=== PATIENT | female | born 2005 | race Caucasian/White ===

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

== ENCOUNTER 2023-03-25 21:55 | Emergency (ER) | payer BC ==
[~2023-03-25] VITALS: Ht 167 cm; Wt 58.9 kg
[~2023-03-25 21:55] MED LIST changes: +METR-145 PO
[2023-03-25] MEDS ORDERED: LACTATED RINGERS 1,000 ML 1,000 ML IV SCH ×2 (22:15→23:00)
[2023-03-25 22:23] LABS: BASOPHILS % (AUTO) 0 % (0-10); EOSINOPHILS % (AUTO) 0 % (0-10); HEMATOCRIT 41 % (35-52); HEMOGLOBIN 13.7 g/dL (11.5-16.0); LYMPHOCYTES # (AUTO) 1.1 10^3/uL (1.0-4.0); LYMPHOCYTES % (AUTO) 9 % (12-44); MEAN CORPUSCULAR HEMOGLOBIN 29 pg (25-34); MEAN CORPUSCULAR HGB CONC 34 g/dL (32-36); MEAN CORPUSCULAR VOLUME 86 fL (80-99); MEAN PLATELET VOLUME 10.2 fL (9.0-12.2); MONOCYTES # (AUTO) 0.4 10^3/uL (0.0-1.0); MONOCYTES % (AUTO) 3 % (0-12); NEUTROPHILS # (AUTO) 10.4 10^3/uL (1.8-7.8); NEUTROPHILS % (AUTO) 87 % (42-75); PLATELET COUNT 295 10^3/uL (130-400)
[2023-03-25] MEDS ORDERED: ONDANSETRON INJECTION 4 MG/2 ML (SDV) IVP ONE (22:30)
[2023-03-25 22:33] LABS: ALBUMIN 4.4 GM/DL (3.2-4.5); POTASSIUM 3.7 MMOL/L (3.6-5.0)
[2023-03-25 22:34] LABS: CLARITY,URINE CLEAR; COLOR,URINE YELLOW; PH,URINE 5.5 (5-9)
[2023-03-25 22:35] LABS: AMORPHOUS SEDIMENT,UR FEW AMOR URATES /LPF; BACTERIA,URINE FEW /HPF; BILIRUBIN,URINE NEGATIVE (NEGATIVE); GLUCOSE, URINE (UA) NEGATIVE (NEGATIVE); KETONES,URINE 4+ (NEGATIVE); LEUKOCYTE ESTERASE ,URINE 2+ (NEGATIVE); NITRITE,URINE NEGATIVE (NEGATIVE); PROTEIN,URINE 2+ (NEGATIVE); RBC,URINE 0-2 /HPF; SQUAMOUS EPITHELIAL CELL,UR TNTC /HPF
[2023-03-25 22:36] LABS: TOTAL PROTEIN 7.9 GM/DL (6.4-8.2)
[2023-03-25 22:37] LABS: BILIRUBIN,TOTAL 0.7 MG/DL (0.1-1.0)
[2023-03-25 22:39] LABS: CREATININE SERUM 0.68 MG/DL (0.60-1.30)
--- NOTE | 2023-03-25 22:41 | ED GI ---
General Chief Complaint: Abdominal/GI Problems Stated Complaint: VOMITING/DIARRHEA/FEVER 10 WKS PREG Nursing Triage Note: PT AMB TO RM 6 WITH CC OF NAUSEA, VOMITING AND DIARRHEA X 3 DAYS. PT STATES ABD PAIN BEGAN THIS AM. PT REPORTS HAD N/V 2 WEEKS PRIOR WHICH SUBSIDED, HAS INCREASED THIS EVENING. PT IS 10 WEEKS PREG. Source of Information: Patient Exam Limitations: No Limitations History of Present Illness Date Seen by Provider: Mar 25, 2023 Time Seen by Provider: 22:28 Initial Comments Patient is a 18-year-old female who presents to the emergency room with a chief complaint of generally not feeling well, nausea, vomiting and diarrhea. Symptom onset 2 to 3 days ago. She is approximately 11 weeks by first trimester ultrasound a couple of weeks ago. Her estimated due date is 10-15-2022. She has not established care as of yet. She is taking vitamins. She is a smoker. No other daily medications. 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 She states there are a lot of residents that have had C. difficile recently. She does test daily for COVID and was negative this morning when she got off work. She endorses chills without measured fever. She has diffuse generalized abdominal pain. She states she has had at least 10 episodes of diarrhea today. Nonblack nonbloody. She does states she has a little bit of blood in her emesis. She denies burning with urination but states she has a history of frequent urinary tract infections. No abnormal vaginal discharge. This is her first . No prior abdominal surgeries Timing/Duration: 2-3 Days Severity/Quality: Moderate, Cramping Location: Generalized Abdomen Radiation: No Radiation Activities at Onset: None Modifying Factors: Worsens With Movement, Worsens With Palpation Associated Symptoms: Nausea/Vomiting, Weakness, Other (diarrhea) Allergies and Home Medications Allergies Coded Allergies: No Known Drug Allergies (Unverified , 11/20/08) Patient Home Medication List Home Medication List Reviewed: Yes Cephalexin (Cephalexin) 500 Mg Tablet, 500 MG PO BID Prescribed by: ABIODUN BECERRA on 10/22/212141 Cephalexin (Cephalexin) 500 Mg Tablet, 500 MG PO BID Prescribed by: ABIODUN BECERRA on 03/12/22 1707 Metronidazole (Metronidazole) 500 Mg Tablet, 500 MG PO BID Prescribed by: ABIODUN BECERRA on 03/12/22 1707 Nitrofurantoin Monohyd/M-Cryst (Macrobid 100 mg Capsule) 100 Mg Capsule, 1 TAB PO BID Prescribed by: EDWIN MON on 04/29/19 0923 Nitrofurantoin Monohyd/M-Cryst (Nitrofurantoin Sherman-Mcr 100 mg) 100 Mg Capsule, 100 MG PO BID Prescribed by: KANIKA DOWNS on 01/20/22 2307 Ondansetron (Ondansetron Odt) 4 Mg Tab.rapdis, 4 MG PO Q6H Prescribed by: ABIODUN BECERRA on 10/22/21 214 Ondansetron (Ondansetron Odt) 4 Mg Tab.rapdis, 4 MG SL Q8H PRN for NAUSEA/VOMITING Prescribed by: ZHANNA WITT on 03/25/23 2328 Review of Systems Review of Systems Constitutional: see HPI, malaise EENTM: No Symptoms Reported Respiratory: No Symptoms Reported Cardiovascular: No Symptoms Reported Gastrointestinal: Abdominal Pain, Diarrhea, Nausea, Vomiting Genitourinary: No Symptoms Reported Musculoskeletal: no symptoms reported Skin: no symptoms reported Psychiatric/Neurological: No Symptoms Reported Past Zuudoop-Xgtfag-Eywndd Hx Patient Social History Use of E-Cig and/or Vaping dev: Yes E-Cig or Vaping type used: Nicotine Use of E-Cig and/or Vaping Srinivasan: Current Everyday User Substance use?: No Alcohol Use?: No Pt feels they are or have been: No Seasonal Allergies Seasonal Allergies: No Past Medical History Surgeries: No Respiratory: No Cardiac: No Neurological: No Genitourinary: No Gastrointestinal: No Musculoskeletal: No Endocrine: No HEENT: No Cancer: No Psychosocial: No Integumentary: No Blood Disorders: No Physical Exam Vital Signs Vital Signs - First Documented 03/25/23 22:02 Temp 36.9 Pulse 81 Resp 16 B/P (MAP) 117/74 (88) Pulse Ox 100 O2 Delivery Room Air Capillary Refill : Less Than 3 Seconds Height/Weight/BMI Height: '" Weight: lbs. oz. kg; 21.00 BMI Method: General Appearance: WD/WN, no apparent distress HEENT: PERRL/EOMI Respiratory: lungs clear, normal breath sounds, no respiratory distress, no accessory muscle use Cardiovascular: regular rate, rhythm Gastrointestinal: soft, abnormal bowel sounds (Hypoactive bowel sounds), guarding (Voluntary guarding); No rebound; tenderness (Diffuse mild tenderness) Extremities: normal range of motion, non-tender, normal inspection Neurologic/Psychiatric: alert, normal mood/affect, oriented x 3 Skin: normal color, warm/dry Progress/Results/Core Measures Results/Orders Lab Results Laboratory Tests Test 03/25/23 22:14 Range/Units White Blood Count 12.0 H 4.3-11.0 10^3/uL Red Blood Count 4.73 3.80-5.11 10^6/uL Hemoglobin 13.7 11.5-16.0 g/dL Hematocrit 41 35-52 % Mean Corpuscular Volume 86 80-99 fL Mean Corpuscular Hemoglobin 29 25-34 pg Mean Corpuscular Hemoglobin Concent 34 32-36 g/dL Red Cell Distribution Width 15.4 H 10.0-14.5 % Platelet Count 295 130-400 10^3/uL Mean Platelet Volume 10.2 9.0-12.2 fL Immature Granulocyte % (Auto) 0 % Neutrophils (%) (Auto) 87 H 42-75 % Lymphocytes (%) (Auto) 9 L 12-44 % Monocytes (%) (Auto) 3 0-12 % Eosinophils (%) (Auto) 0 0-10 % Basophils (%) (Auto) 0 0-10 % Neutrophils # (Auto) 10.4 H 1.8-7.8 10^3/uL Lymphocytes # (Auto) 1.1 1.0-4.0 10^3/uL Monocytes # (Auto) 0.4 0.0-1.0 10^3/uL Eosinophils # (Auto) 0.0 0.0-0.3 10^3/uL Basophils # (Auto) 0.0 0.0-0.1 10^3/uL Immature Granulocyte # (Auto) 0.0 0.0-0.1 10^3/uL Urine Color YELLOW Urine Clarity CLEAR Urine pH 5.5 5-9 Urine Specific [place] >=1.030 1.016-1.022 Urine Protein 2+ H NEGATIVE Urine Glucose (UA) NEGATIVE NEGATIVE Urine Ketones 4+ H NEGATIVE Urine Nitrite NEGATIVE NEGATIVE Urine Bilirubin NEGATIVE NEGATIVE Urine Urobilinogen 0.2 < = 1.0 MG/DL Urine Leukocyte Esterase 2+ H NEGATIVE Urine RBC (Auto) NEGATIVE NEGATIVE Urine RBC 0-2 /HPF Urine WBC 2-5 /HPF Urine Squamous Epithelial Cells TNTC H /HPF Urine Crystals PRESENT H /LPF Urine Amorphous Sediment FEW CHRISTOS URATES H /LPF Urine Bacteria FEW H /HPF Urine Casts NONE /LPF Urine Mucus MODERATE H /LPF Urine Culture Indicated NO Sodium Level 134 L 135-145 MMOL/L Potassium Level 3.7 3.6-5.0 MMOL/L Chloride Level 102 98-107 MMOL/L Carbon Dioxide Level 15 L 21-32 MMOL/L Anion Gap 17 H 5-14 MMOL/L Blood Urea Nitrogen 8 7-18 MG/DL Creatinine 0.68 0.60-1.30 MG/DL Estimat Glomerular Filtration Rate 128 BUN/Creatinine Ratio 12 Glucose Level 88 70-105 MG/DL Calcium Level 10.0 8.5-10.1 MG/DL Corrected Calcium 9.7 8.5-10.1 MG/DL Total Bilirubin 0.7 0.1-1.0 MG/DL Aspartate Amino Transf (AST/SGOT) 22 5-34 U/L Alanine Aminotransferase (ALT/SGPT) 9 0-55 U/L Alkaline Phosphatase 55 40-136 U/L Total Protein 7.9 6.4-8.2 GM/DL Albumin 4.4 3.2-4.5 GM/DL My Orders Orders - ZHANNA WITT MD Ed Iv/Invasive Line Start (03/25/23 22:15) Lactated Ringers 1,000 Ml (Lactated Ring (03/25/23 22:15) Cbc With Automated Diff (03/25/23 22:15) Comprehensive Metabolic Panel (03/25/23 22:15) Ua Culture If Indicated (03/25/23 22:15) Ondansetron Injection (Ondansetron Inj (03/25/23 22:30) Parasite Scrn Stool Giard Cryp (03/25/23 22:30) C Difficile Ag + Toxin A/B. (03/25/23 22:30) Lactated Ringers 1,000 Ml (Lactated Ring (03/25/23 23:00) Medications Given in ED Current Medications Medications Dose Ordered Sig/Kamilah Route Start Time Stop Time Status Last Admin Dose Admin Ondansetron HCl 8 mg ONCE ONCE IVP 03/25/23 22:30 03/25/23 22:32 DC 03/25/23 22:45 8 MG Vital Signs/I&O 03/25/23 22:02 Temp 36.9 Pulse 81 Resp 16 B/P (MAP) 117/74 (88) Pulse Ox 100 O2 Delivery Room Air Blood Pressure Mean: 88 Progress Progress Note : Time: 00:36 Progress Note Patient seen and evaluated by me. Evaluation today includes physical exam, CBC , CMP, urinalysis. Pertinent physical exam findings well-developed well- nourished female appears pale. Heart is regular, lungs are clear. Abdomen is slightly distended with hypoactive bowel sounds. She is diffusely tender without involuntary rebound. She has voluntary guarding. No rebound at [place] point. No lower extremity edema or calf tenderness. Vital signs are stable, she is not tachycardic while lying supine in the bed. She does endorse orthostasis. Differential diagnosis based on history and physical exam, urinary tract infection, C. difficile colitis, acute gastroenteritis, dehydration in ; hyperemesis gravidarum Labs independently reviewed and interpreted by me. Her CBC shows a mildly elevated white blood cell count 12.0 with normal hemoglobin and hematocrit. She has 87% segmented neutrophils. Her chemistry shows normal sodium, potassium. She has low CO2 at 15 anion gap of 17. Normal BUN and creatinine normal blood sugar. Her urinalysis contaminated with too numerous to count squamous epithelial cells. She does have 4+ ketones in the setting of a specific gravity of greater than 1.030. Patient is treated with 8 mg of Zofran IV as well as 2 L of lactated Ringer's. Reevaluated as her second liter is finishing. She feels much better. She has a little more color. I was unable to obtain stool specimen to evaluate for C. difficile colitis therefore the patient is provided an outpatient lab slip and instructed to bring this back tomorrow. She is also encouraged to follow-up with an OB provider. I have given her Dr. Burt's contact information. Return precautions provided in both verbal and written format. All questions are sought and answered. Patient is improved at discharge. Departure Impression Primary Impression: Gastroenteritis Additional Impressions: Dehydration 11 weeks gestation of Disposition: HOME, SELF-CARE Condition: Improved Departure-Patient Inst. Decision time for Depature: 23:24 Referrals: NO,LOCAL PHYSICIAN (PCP) Primary Care Physician SAMIRA BURT DO Patient Instructions: Nausea and Vomiting of , Smoking in Add. Discharge Instructions: Take the Ondansetron (zofran) 4mg tablets every 8 hours as needed for nausea. You can also find mau candies - mau is good for nausea. Vitamin B6 si good for nausea, 1 tablet daily. Drink Pedialyte/gatorade for electrolytes. I have given you an out patient order for stool studies to make sure you do not have c-diff colitis. Please bring this specimen back for testing. Please call for an appointment for routine care. Return to the Emergency Department for any new, concerning or emergent complaints. Scripts Ondansetron (Ondansetron Odt) 4 Mg Tab.rapdis 4 MG SL Q8H PRN for NAUSEA/VOMITING, #12 TAB Prov: ZHANNA WITT MD 03/25/23 Work/School Note: Work Release Form Date Seen in the Emergency Department: Mar 25, 2023 Return to Work: Mar 27, 2023 ZHANNA WITT MD Mar 25, 2023 22:41
[2023-03-25] MEDS ORDERED: ONDA4TAB11 SL (23:28)
[2023-03-26 00:46] VITALS: BP 108/55
== END 2023-03-26 00:46 | disposition home or self-care (01) ==
LOC: EDUNIT# 21:55 → ER 21:57
DX: O99.611 Diseases of the digestive system complicating pregnancy, first trimester (principal); K52.9 Noninfective gastroenteritis and colitis, unspecified; O99.281 Endocrine, nutritional and metabolic diseases complicating pregnancy, first trimester; E86.0 Dehydration; O99.331 Smoking (tobacco) complicating pregnancy, first trimester; F17.290 Nicotine dependence, other tobacco product, uncomplicated; Z3A.11 11 weeks gestation of pregnancy
CPT/HCPCS: 36415; 80053; 81000; 85025